=== PATIENT | male | born 1985 | race Caucasian/White ===

== ENCOUNTER 2018-09-13 09:21 | Emergency (ER) | payer OTHER ==
[2018-09-13] MEDS ORDERED: LIDOCAINE 5% (700 MG) TRANSDERMAL ADH..PATCH TP ONE (09:42)
[2018-09-13] MEDS ORDERED: NORMAL SALINE 1000 ML 1,000 ML IV ONE (09:42)
--- NOTE | 2018-09-13 10:43 | RADIOLOGY REPORT (SQ) ---
EXAM DESCRIPTION: L SPINE WHOLE COMPLETED DATE/TIME: 09/13/2018 10:26 am REASON FOR STUDY: fall pain COMPARISON: None. NUMBER OF VIEWS: Five views including obliques. TECHNIQUE: AP, lateral, oblique, and sacral radiographic images acquired of the lumbar spine. LIMITATIONS: None. FINDINGS: MINERALIZATION: Normal. SEGMENTATION: Partial lumbarization of S1. ALIGNMENT: Normal. VERTEBRAE: Maintained height. No fracture or worrisome bone lesion. DISCS: Minimal degenerative disc disease at L3-4 and L4-5 POSTERIOR ELEMENTS: Pedicles and facets are intact. No pars defect or posterior arch defects. HARDWARE: None in the spine. PARASPINAL SOFT TISSUES: Probable left nephrolithiasis. PELVIS: Intact as visualized. No fractures or worrisome bone lesions. SI joints intact. OTHER: No other significant finding. IMPRESSION: 1. No evidence fracture. 2. Minimal degenerative changes. 3. Probable left nephrolithiasis. TECHNICAL DOCUMENTATION: JOB ID: [id number] [employer]- All Rights Reserved Reading location - IP/workstation name: [email or web address]
[2018-09-13 11:14] LABS: APPEARANCE,URINE SLIGHTLY-CLOUDY; BILIRUBIN,URINE NEGATIVE (NEGATIVE); COLOR,URINE YELLOW; GLUCOSE, URINE NEGATIVE (NEGATIVE); KETONES,URINE NEGATIVE (NEGATIVE); LEUKOCYTE ESTERASE,URINE NEGATIVE (NEGATIVE); NITRITE,URINE NEGATIVE (NEGATIVE); PROTEIN,URINE NEGATIVE (NEGATIVE); URINE SPECIFIC GRAVITY 1.019
[2018-09-13 12:06] LABS: ANION GAP 10 (5-19); BLOOD UREA NITROGEN 11 mg/dL (7-20); CALCIUM 9.1 mg/dL (8.4-10.2); CARBON DIOXIDE 24 mmol/L (22-30); CHLORIDE 107 mmol/L (98-107); CREATINE KINASE 79 U/L (55-170); GLUCOSE 91 mg/dL (75-110); POTASSIUM 4.6 mmol/L (3.6-5.0); SODIUM 141.2 mmol/L (137-145)
--- NOTE | 2018-09-13 12:22 | ER Document Report ---
ED General - General Chief Complaint: Back Pain Stated Complaint: BACK PAIN Time Seen by Provider: 09/13/18 09:37 TRAVEL OUTSIDE OF THE [place] IN LAST 30 DAYS: No - HPI Patient complains to provider of: Left-sided back pain Notes: Patient coming in for left-sided back pain ongoing for the last 3 days. Patient denies any fevers chills nausea vomiting diarrhea denies any numbness or tingling denies any bowel or bladder incontinence. Patient is concerned states that he was in kidney failure a few years ago with similar back pain concern is may be ongoing again. Patient otherwise denies any trauma resting comfortably upon my evaluation - Related Data Allergies/Adverse Reactions: nickel [Nickel] Allergy (Verified 09/13/18 09:22) Past Medical History - Social History Smoking Status: Current Every Day Smoker Chew tobacco use (# tins/day): No Frequency of alcohol use: Rare Drug Abuse: None Family History: None Patient has suicidal ideation: No Patient has homicidal ideation: No Neurological Medical History: Denies: Hx Seizures Renal/ Medical History: Denies: Hx Peritoneal Dialysis Psychiatric Medical History: Denies: Hx Depression Past Surgical History: Reports: Hx Genitourinary Surgery - vasectomy - Immunizations Hx Diphtheria, Pertussis, Tetanus Vaccination: Yes Review of Systems - Review of Systems Constitutional: No symptoms reported EENT: No symptoms reported Cardiovascular: No symptoms reported Respiratory: No symptoms reported Gastrointestinal: No symptoms reported Genitourinary: No symptoms reported Male Genitourinary: No symptoms reported Musculoskeletal: Back pain Skin: No symptoms reported Hematologic/Lymphatic: No symptoms reported Neurological/Psychological: No symptoms reported -: Yes All other systems reviewed and negative Physical Exam - Vital signs Interpretation: Normal - General General appearance: Appears well, Alert - HEENT Head: Normocephalic, Atraumatic Eyes: Normal Pupils: PERRL - Respiratory Respiratory status: No respiratory distress Chest status: Nontender Breath sounds: Normal Chest palpation: Normal - Cardiovascular Rhythm: Regular Heart sounds: Normal auscultation Murmur: No - Abdominal Inspection: Normal Distension: No distension Bowel sounds: Normal Tenderness: Nontender Organomegaly: No organomegaly - Back Back: Normal, Nontender - Extremities General upper extremity: Normal inspection, Nontender, Normal color, Normal ROM , Normal temperature General lower extremity: Normal inspection, Nontender, Normal color, Normal ROM , Normal temperature, Normal weight bearing. No: Bruce's sign - Neurological Neuro grossly intact: Yes Cognition: Normal Orientation: AAOx4 Obed Coma Scale Eye Opening: Spontaneous [place] Coma Scale Verbal: Oriented Obed Coma Scale Motor: Obeys Commands [place] Coma Scale Total: 15 Speech: Normal Motor strength normal: LUE, RUE, LLE, RLE Sensory: Normal - Psychological Associated symptoms: Normal affect, Normal mood - Skin Skin Temperature: Warm Skin Moisture: Dry Skin Color: Normal Course - Laboratory Result Diagrams: 09/13/18 11:28 Laboratory results interpreted by me: 09/13/18 10:39 Urine Urobilinogen 4.0 H Discharge - Discharge Clinical Impression: Back pain Qualifiers: Back pain location: low back pain Back pain laterality: left Sciatica presence : unspecified whether sciatica present Instructions: Ice Packs ([facility]), Oral Narcotic Medication ([facility]), Low Back Pain ( [facility]), Warm Packs ([facility]) Additional Instructions: Laboratory studies are normal no signs of acute renal failure at this time. X- ray does not show any signs of acute fracture there is some signs of degenerative changes or arthritic changes in your back. Would recommend warm packs ice packs Tylenol Motrin for pain control Ultram for severe pain. Return to the ER symptoms worsen. Prescriptions: Ibuprofen [Motrin 600 mg Tablet] 600 mg PO Q8HP PRN #21 tablet PRN Reason: Ondansetron HCl [Zofran 4 mg Tablet] 1 - 2 tab PO Q6 #30 tablet Tramadol HCl [Ultram 50 mg Tablet] 50 mg PO ASDIR PRN #14 tablet PRN Reason: Forms: Return to Work
[2018-09-13 12:37] VITALS: BP 143/68
== END 2018-09-13 12:35 | disposition home or self-care (01) ==
LOC: ER 09:21
DX: M54.5 Low back pain (principal); F17.200 Nicotine dependence, unspecified, uncomplicated
CPT/HCPCS: 99284; 96360; 36415; 82550; 80048; 81001; 72110; J7030

== ENCOUNTER 2020-07-11 18:01 | Emergency (ER) | payer OTHER ==
[2020-07-11 18:31] VITALS: BP 157/102
--- NOTE | 2020-07-11 18:53 | ER Document Report ---
ED Medical Screen (RME) - General Chief Complaint: Flank Pain Stated Complaint: LEFT FLANK PAIN Time Seen by Provider: 07/11/20 18:42 Primary Care Provider: ARSENIO,SALO [Primary Care Provider] - Follow up as needed Mode of Arrival: Ambulatory Information source: Patient Notes: 35-year-old male presented to ED for complaint of left-sided abdominal pain. He states it started about 1 or 2 hours ago. His abdomen is very distended and firm. He I do not appreciate any bowel sounds. I have asked the nurse Lizz and she did not hear any bowel sounds either. I have spoken with Dr. Espinoza he recommended a noncontrasted CT of the abdomen pelvis and routine labs. These have been ordered. He states in 2014 he did have severe gastroenteritis and kidney failure. He states his kidneys were functioning at about a 10 or 15% but he was admitted and it resolved on its own. He states he did have an endoscopy and a colonoscopy at the time he was admitted. He states he is also had a vasectomy. He states he does smoke half pack a day drinks weekly and does not use any illicit drugs. He will be sent straight to the CT at this time. I have greeted and performed a rapid initial assessment of this patient. A comprehensive ED assessment and evaluation of the patient, analysis of test results and completion of medical decision making process will be conducted by an additional ED providers. TRAVEL OUTSIDE OF THE [place] IN LAST 30 DAYS: No - Related Data Allergies/Adverse Reactions: nickel [Nickel] Allergy (Verified 07/11/20 18:42) Past Medical History Neurological Medical History: Denies: Hx Seizures Renal/ Medical History: Denies: Hx Peritoneal Dialysis Psychiatric Medical History: Denies: Hx Depression Past Surgical History: Reports: Hx Genitourinary Surgery - vasectomy - Immunizations Hx Diphtheria, Pertussis, Tetanus Vaccination: Yes Physical Exam - Vital signs Vitals: Temp Pulse Resp BP Pulse Ox 98.2 F 89 18 157/102 H 100 07/11/20 18:29 07/11/20 18:29 07/11/20 18:29 07/11/20 18:29 07/11/20 18:29 Course - Vital Signs Vital signs: Temp Pulse Resp BP Pulse Ox 98.2 F 89 18 157/102 H 100 07/11/20 18:29 07/11/20 18:29 07/11/20 18:29 07/11/20 18:29 07/11/20 18:29 Doctor's Discharge - Discharge Referrals: [facility] [[facility]] - Follow up as needed
--- NOTE | 2020-07-11 19:19 | RADIOLOGY REPORT (SQ) ---
EXAM DESCRIPTION: CT ABD/PELVIS NO ORAL OR IV IMAGES COMPLETED DATE/TIME: 07/11/2020 7:05 pm REASON FOR STUDY: left abdominal pain no bowel sound distended COMPARISON: None. TECHNIQUE: CT scan of the abdomen and pelvis performed without intravenous or oral contrast. Images reviewed with lung, soft tissue, and bone windows. Reconstructed coronal and sagittal MPR images revi ewed. All images stored on PACS. All CT scanners at this facility use dose modulation, iterative reconstruction, and/or weight based d osing when appropriate to reduce radiation dose to as low as reasonably achievable (ALARA). [facility]: Dose Right [facility]: CareDose [facility]: Dose Right [facility]: Teradose 4D [facility]: CryoLife RADIATION DOSE: mGy. LIMITATIONS: None. FINDINGS: LOWER CHEST: No significant findings. No nodules or infiltrates. NON-CONTRASTED LIVER, SPLEEN, ADRENALS: The liver is diffusely hypoattenuating. No masses. The sple en and adrenal glands are normal. PANCREAS: No masses. No peripancreatic inflammatory changes. GALLBLADDER: No identified stones by CT criteria. No inflammatory changes to suggest cholecystitis. RIGHT KIDNEY AND URETER: No suspicious masses. Assessment limited by lack of IV contrast. There is a tiny nonobstructing intrarenal calculus. No hydronephrosis or hydroureter. LEFT KIDNEY AND URETER: No suspicious masses. Assessment limited by lack of IV contrast. There is a small nonobstructing intrarenal calculus. There is a 3 mm calculus in the mid left ureter mild hy dronephrosis. AORTA AND RETROPERITONEUM: No aneurysm. No retroperitoneal masses or adenopathy. BOWEL AND PERITONEAL CAVITY: No obvious masses or inflammatory changes. No free fluid. APPENDIX: Not identified. PELVIS, BLADDER, AND ABDOMINAL WALL:No abnormal masses. No free fluid. Bladder normal. BONES: No significant findings. OTHER: No other significant finding. IMPRESSION: There is mild left hydronephrosis secondary to the presence of 3 mm mid ureteral calculu s. Small nonobstructing intrarenal calculus is seen on each side. COMMENT: Quality ID # [id number]: Final reports with documentation of one or more dose reduction techniques (e.g., Automated exposure control, adjustment of the mA and/or kV according to patient size, use of iterative reconstruction technique) TECHNICAL DOCUMENTATION: JOB ID: [id number] 2011 [employer]- All Rights Reserved Reading location - IP/workstation name: [email or web address]
[2020-07-11 19:47] LABS: ABSOLUTE BASOPHILS # (AUTO) 0.1 10^3/uL (0.0-0.2); ABSOLUTE EOSINOPHILS # (AUTO) 0.1 10^3/uL (0.0-0.6); ABSOLUTE LYMPHOCYTES (AUTO) 2.8 10^3/uL (0.5-4.7); ABSOLUTE MONOCYTES (AUTO) 1.6 10^3/uL (0.1-1.4); ABSOLUTE NEUT (AUTO) 10.2 10^3/uL (1.7-8.2); BASOPHILS % (AUTO) 0.8 % (0-2); EOSINOPHILS % (AUTO) 0.8 % (0-6); HEMATOCRIT 46.8 % (37.9-51.0); HEMOGLOBIN 16.3 g/dL (13.5-17.0); LYMPHOCYTES % (AUTO) 18.6 % (13-45); MEAN CORPUSCULAR HGB CONC 34.7 g/dL (32.0-36.0); MEAN CORPUSCULAR VOLUME 95 fl (80-97); MONOCYTES % (AUTO) 10.9 % (3-13); PLATELET COUNT 194 10^3/uL (150-450); RED BLOOD COUNT 4.93 10^6/uL (4.35-5.55); SEGMENTED NEUTROPHILS % (AUTO) 68.9 % (42-78); TOTAL CELLS COUNTED % (AUTO) 100 %; WHITE BLOOD COUNT 14.8 10^3/uL (4.0-10.5)
[2020-07-11] MEDS ORDERED: ONDANSETRON HCL INJ/PF 4 MG/2 ML SDV IV ONE (19:48)
[2020-07-11] MEDS ORDERED: KETOROLAC TROMETHAMINE INJ/PF 30 MG/1 ML SDV IV ONE (19:48)
[2020-07-11] MEDS ORDERED: NORMAL SALINE 1000 ML 1,000 ML IV ONE (19:48)
[2020-07-11 19:50] LABS: APPEARANCE,URINE CLOUDY; BILIRUBIN,URINE NEGATIVE (NEGATIVE); CALCIUM OXALATE CRYSTALS,URINE TOO NUMEROUS TO CNT /HPF; COLOR,URINE YELLOW; GLUCOSE, URINE NEGATIVE (NEGATIVE); KETONES,URINE NEGATIVE (NEGATIVE); LEUKOCYTE ESTERASE,URINE NEGATIVE (NEGATIVE); NITRITE,URINE NEGATIVE (NEGATIVE); PROTEIN,URINE 100 mg/dL (NEGATIVE); URINE SPECIFIC GRAVITY 1.032
[2020-07-11 20:01] LABS: ALBUMIN 5.1 g/dL (3.5-5.0); ALKALINE PHOSPHATASE 81 U/L (38-126); ANION GAP 14 (5-19); ASPARTATE AMINO TRANSFERASE 70 U/L (17-59); BILIRUBIN,DIRECT 0.3 mg/dL (0.0-0.4); BILIRUBIN,TOTAL 0.7 mg/dL (0.2-1.3); BLOOD UREA NITROGEN 15 mg/dL (7-20); CALCIUM 10.8 mg/dL (8.4-10.2); CARBON DIOXIDE 27 mmol/L (22-30); CHLORIDE 98 mmol/L (98-107); GLUCOSE 129 mg/dL (75-110); POTASSIUM 3.9 mmol/L (3.6-5.0); TOTAL PROTEIN 8.6 g/dL (6.3-8.2)
[2020-07-11 20:05] LABS: ALCOHOL < 10 mg/dL (NONE DETECTED)
[2020-07-11 20:10] LABS: URINE AMPHETAMINES SCREEN NEGATIVE; URINE BARBITURATES SCREEN NEGATIVE; URINE BENZODIAZEPINES SCREEN NEGATIVE; URINE COCAINE SCREEN NEGATIVE; URINE METHADONE SCREEN NEGATIVE; URINE PHENCYCLIDINE SCREEN NEGATIVE
[2020-07-11 20:14] LABS: URINE MARIJUANA (THC) SCREEN UNCONFIRMED POSITIVE
--- NOTE | 2020-07-11 21:02 | ER Document Report ---
ED GI/ - General Chief Complaint: Abdominal Pain Stated Complaint: LEFT FLANK PAIN Time Seen by Provider: 07/11/20 18:42 Primary Care Provider: ARSENIO,SALO [Primary Care Provider] - Follow up as needed Mode of Arrival: Ambulatory Notes: 07/11/20 18:42 - ED Nursing Note by KIZZY BARRIOS Acct Num: [id number] : 1985 Patient Age: 35 pt reports he got off work 1-2 hours ago. states pain to the left side. denies fevers n/v. abdomen is tight. reports that started today. unable to hear bowel sound in any quad. ED Medical Screen ([facility])) - General Chief Complaint: Flank Pain Stated Complaint: LEFT FLANK PAIN Time Seen by Provider: 07/11/20 18:42 Primary Care Provider: SALO CESAR [Primary Care Provider] - Follow up as needed Mode of Arrival: Ambulatory Information source: Patient Notes: 35-year-old male presented to ED for complaint of left-sided abdominal pain. He states it started about 1 or 2 hours ago. His abdomen is very distended and firm. He I do not appreciate any bowel sounds. I have asked the nurse Kizzy and she did not hear any bowel sounds either. I have spoken with Dr. Espinoza he recommended a noncontrasted CT of the abdomen pelvis and routine labs. These have been ordered. He states in 2014 he did have severe gastroenteritis and kidney failure. He states his kidneys were functioning at about a 10 or 15% but he was admitted and it resolved on its own. He states he did have an endoscopy and a colonoscopy at the time he was admitted. He states he is also had a vasectomy. He states he does smoke half pack a day drinks weekly and does not use any illicit drugs. He will be sent straight to the CT at this time. MY NOTES 35-year-old male with kidney stone on CT scan 3 mm. Order written by Dr. Espinoza prior to my arrival and was turned over to me at [address] Espinoza. 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 Today it was quite hot at 80 degrees in early July. He reports he has been drinking fluids but has sunburn over his face today. His twin brother had kidney stones passed in 2017 but patient denies any prior history of kidney stones. He denies any constipation or abdominal trauma. He reports he had a 8 out of 10 abdominal pain when he arrived today. After receiving pain medicines in room #2 he is much improved. He will be sent home on pain medicines Cipro and Flomax. TRAVEL OUTSIDE OF THE [place] IN LAST 30 DAYS: No - HPI Patient complains to provider of: Abdominal pain, Dysuria, Groin pain, Hematuria Onset: This afternoon Timing/Duration: Sudden, Persistent, Better Quality of pain: Achy Severity at maximum: Severe Pain Level: 4 Location: LLQ - Related Data Allergies/Adverse Reactions: nickel [Nickel] Allergy (Verified 07/11/20 18:42) Past Medical History - General Information source: Patient - Social History Smoking Status: Current Every Day Smoker Cigarette use (# per day): Yes Chew tobacco use (# tins/day): No Smoking Education Provided: Yes - advised against smoking Frequency of alcohol use: None Drug Abuse: None Lives with: Family Family History: None, Reviewed & Not Pertinent Patient has suicidal ideation: No Patient has homicidal ideation: No Neurological Medical History: Denies: Hx Seizures Renal/ Medical History: Denies: Hx Peritoneal Dialysis Psychiatric Medical History: Denies: Hx Depression Past Surgical History: Reports: Hx Genitourinary Surgery - vasectomy - Immunizations Hx Diphtheria, Pertussis, Tetanus Vaccination: Yes Review of Systems - Review of Systems Constitutional: No symptoms reported EENT: No symptoms reported Cardiovascular: No symptoms reported Respiratory: No symptoms reported Gastrointestinal: See HPI, Abdominal pain, Poor appetite, Poor fluid intake. denies: Diarrhea, Nausea, Vomiting, Constipation, Blood streaked bowels, Blood in vomit, Rectal bleeding, Fecal incontinence Genitourinary: See HPI, Dysuria, Frequency, Hematuria, Urgency Male Genitourinary: No symptoms reported Musculoskeletal: No symptoms reported Skin: No symptoms reported Hematologic/Lymphatic: No symptoms reported Neurological/Psychological: No symptoms reported -: Yes All other systems reviewed and negative Physical Exam - Vital signs Vitals: Temp Pulse Resp BP Pulse Ox 98.2 F 89 18 157/102 H 100 07/11/20 18:29 07/11/20 18:29 07/11/20 18:29 07/11/20 18:29 07/11/20 18:29 Interpretation: Hypertensive - General General appearance: Appears well, Alert - HEENT Head: Normocephalic, Atraumatic Eyes: Normal Pupils: PERRL - Respiratory Respiratory status: No respiratory distress Chest status: Nontender Breath sounds: Normal Chest palpation: Normal - Cardiovascular Rhythm: Regular Heart sounds: Normal auscultation Murmur: No - Abdominal Inspection: Normal Distension: No distension Bowel sounds: Normal Tenderness: Tender - LLQ o p/p Organomegaly: No organomegaly - Rectal Prostate: Other - deferred - Genitourinary Scrotum: Other - deferred - Back Back: Normal, Nontender - Extremities General upper extremity: Normal inspection, Nontender, Normal color, Normal ROM, Normal temperature General lower extremity: Normal inspection, Nontender, Normal color, Normal ROM, Normal temperature, Normal weight bearing. No: Bruce's sign - Neurological Neuro grossly intact: Yes Cognition: Normal Orientation: AAOx4 [place] Coma Scale Eye Opening: Spontaneous [place] Coma Scale Verbal: Oriented [place] Coma Scale Motor: Obeys Commands [place] Coma Scale Total: 15 Speech: Normal Motor strength normal: LUE, RUE, LLE, RLE Sensory: Normal - Psychological Associated symptoms: Normal affect, Normal mood - Skin Skin Temperature: Warm Skin Moisture: Dry Skin Color: Normal Course - Vital Signs Vital signs: Temp Pulse Resp BP Pulse Ox 98.2 F 89 18 157/102 H 100 07/11/20 18:29 07/11/20 18:29 07/11/20 18:29 07/11/20 18:29 07/11/20 18:29 - Laboratory Result Diagrams: 07/11/20 19:29 07/11/20 19:29 Laboratory results interpreted by me: 07/11/20 07/11/20 07/11/20 19:29 19:29 19:29 WBC 14.8 H Absolute Neuts (auto) 10.2 H Absolute Monos (auto) 1.6 H Glucose 129 H Calcium 10.8 H AST 70 H ALT 100 H Total Protein 8.6 H Albumin 5.1 H Urine Protein 100 H Urine Blood LARGE H Urine Urobilinogen 4.0 H Urine Ascorbic Acid 40 H - Diagnostic Test Radiology reviewed: Reports reviewed Discharge - Discharge Clinical Impression: Kidney stone on left side Hypertension Qualifiers: Hypertension type: unspecified Qualified Code(s): I10 - Essential (primary) hypertension Condition: Good Disposition: HOME, SELF-CARE Instructions: Abdominal Pain ([facility]) Additional Instructions: Follow-up with urologist or with personal doctor this week if symptoms persist; take medicines as directed ;encourage fluids like lemonade or half a beer daily to encourage flow of your current kidney stone. You have a kidney stone on each kidney as well so be aware in the future for any kidney stones try to keep a hydrated body while working in the heat and your construction job. Also get your blood pressure checked and if it continues to be high your doctor may place you on blood pressure medicine. Prescriptions: Ciprofloxacin HCl [Cipro 500 mg Tablet] 500 mg PO BID #20 tablet Tamsulosin HCl [Flomax 0.4 mg Cap.sr] 0.4 mg PO DAILY #7 cap.sr.24h Forms: Return to Work [facility]errals: [facility] [Primary [facility]] - Follow up as needed
[2020-07-11] MEDS ORDERED: FENTANYL CITRATE INJ/PF 100 MCG/2 ML AMPUL IV ONE (21:16)
[2020-07-11] MEDS ORDERED: LEVOFLOXACIN 500 MG TABLET PO ONE (21:54)
[2020-07-11] MEDS ORDERED: HYDROCODONE/ACETAMINOPHEN 5-325 MG (6 TAB/ER DISP) PO PRN (21:54)
[2020-07-11] MEDS ORDERED: ONDANSETRON ODT 4 MG TAB (6 TAB/ER DISP) PO PRN (21:56)
== END 2020-07-11 22:25 | disposition home or self-care (01) ==
LOC: ER 18:01
DX: N20.0 Calculus of kidney (principal); R10.9 Unspecified abdominal pain; I10 Essential (primary) hypertension; F17.210 Nicotine dependence, cigarettes, uncomplicated
CPT/HCPCS: 99285; 96361; 96374; 96375; 36415; 80307 ×2; 83690; 85025; 80053; 81001; 74176; J3010; J1885; J2405; J7030